=== PATIENT | male | born 1980 | race Hispanic/Latino ===

== ENCOUNTER 2018-03-03 00:10 | Emergency (ER) | payer SELFPAY ==
--- NOTE | 2018-03-03 00:39 | ED.PDOC ---
History of Present Illness - General Chief Complaint: General Stated Complaint: left hand and left calf pain Time Seen by Provider: 03/03/18 00:30 Source: patient Exam Limitations: no limitations - History of Present Illness Initial Comments: the patient is a 37-year-old male presenting to the emergency room secondary to an area of cellulitis to his inner left calf present for approximately 3 days. He is already draining some pus out of it. There is mild extending erythema. Additionally he reports that he got his hand mildly crushed about a week ago. He does have some mild soft tissue swelling of the left hand. He has full range of motion and full strength. No crepitus. No deformity. No angulation and no point tenderness. I do not believe an x-ray would be beneficial for him. This appears to be soft tissue injury only. He does appear to be neurovascularly preserved there. Timing/Duration: unsure Severity: moderate Improving Factors: nothing Worsening Factors: nothing Associated Symptoms: denies symptoms Allergies/Adverse Reactions: Allergies NO KNOWN ALLERGY Allergy (Verified 01/16/16 07:35) Home Medications: Ambulatory Orders Cephalexin 500 mg PO QID #30 cap 01/16/16 Sulfa/Trimeth 800/160 (Ds) Tab [Bactrim DS] 1 ea PO BID 01/16/16 Tramadol HCl 50 mg PO Q4HWA PRN #20 tab 01/16/16 Sulfa/Trimeth 800/160 (Ds) Tab [Bactrim DS Tab] 1 ea PO BID #14 tab 03/03/18 Review of Systems - Review of Systems Constitutional: States: no symptoms reported EENTM: States: no symptoms reported Respiratory: States: no symptoms reported Cardiology: States: no symptoms reported Gastrointestinal/Abdominal: States: no symptoms reported Genitourinary: States: no symptoms reported Musculoskeletal: States: see HPI Skin: States: see HPI Neurological: States: no symptoms reported Endocrine: States: no symptoms reported All other Systems: No Change from Baseline Past Medical History (General) - Patient Medical History Hx Seizures: No Hx Stroke: No Hx of COPD: No Hx Cardiac Disorders: No Hx Congestive Heart Failure: No Hx Hypertension: No Hx Thyroid Disease: No Hx Diabetes: No Hx Gastroesophageal Reflux: No Hx Renal Disease: No Hx Cancer: No Hx of HIV: No Hx Hepatitis C: No Hx MRSA: Yes - Leg Wound 2016 MRSA Source:: Wound - Vaccination History Hx Tetanus, Diphtheria Vaccination: Yes Hx Influenza Vaccination: No Hx Pneumococcal Vaccination: No - Social History Hx Tobacco Use: Yes - pack every 3 days Hx Substance Use: No Family Medical History - Family History Father Family History: No Known Living Status: Still Living Physical Exam - Physical Exam General Appearance: Alert, Comfortable, No apparent distress Eye Exam: bilateral normal Ears, Nose, Throat: hearing grossly normal Neck: full range of motion Respiratory: no respiratory distress, no accessory muscle use Cardiovascular/Chest: normal peripheral pulses, no edema Peripheral Pulses: dorsalis pedis,right: 2+, dorsalis pedis,left: 2+ Rectal Exam: deferred Back Exam: no vertebral tenderness Extremity: normal range of motion, no pedal edema, normal capillary refill 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 He was dosed here with the first dose and will be placed on Bactrim twice daily for the next 7 days. He needs to take this with food. Additionally the patient has some mild soft tissue crush injury to the left hand. This will simply take a while to heal. [id number] anti-inflammatory such as Advil or Aleve may help. ER warnings were given.keep routine follow-up with primary care doctor otherwise. Departure - Departure Clinical Impression: Cellulitis Qualifiers: Site of cellulitis: extremity Site of cellulitis of extremity: lower extremity Laterality: left Qualified Code(s): L03.116 - Cellulitis of left lower limb Hand crush injury Qualifiers: Encounter type: initial encounter Laterality: left Qualified Code(s): S67.22XA - Crushing injury of left hand, initial encounter Disposition: Discharge to Home or Self Care Condition: Fair Departure Forms: ED Discharge - Pt. Copy, Patient Portal Self Enrollment Instructions: Cellulitis (Skin Infection), Adult (DC) Diet: regular diet Activity: increase activity as tolerated Prescriptions: Sulfa/Trimeth 800/160 (Ds) Tab [Bactrim DS Tab] 1 ea PO BID #14 tab Home Medications: Ambulatory Orders Cephalexin 500 mg PO QID #30 cap 01/16/16 Sulfa/Trimeth 800/160 (Ds) Tab [Bactrim DS] 1 ea PO BID 01/16/16 Tramadol HCl 50 mg PO Q4HWA PRN #20 tab 01/16/16 Sulfa/Trimeth 800/160 (Ds) Tab [Bactrim DS Tab] 1 ea PO BID #14 tab 03/03/18 Additional Instructions: the patient is a 37-year-old male presenting to the emergency room secondary to mild cellulitis of the left calf. He was dosed here with the first dose and will be placed on Bactrim twice daily for the next 7 days. He needs to take this with food. Additionally the patient has some mild soft tissue crush injury to the left hand. This will simply take a while to heal. [id number] anti-inflammatory such as Advil or Aleve may help. ER warnings were given.keep routine follow-up with primary care doctor otherwise.
[2018-03-03 00:42] VITALS: TEMP 98.7; O2SAT 99
[2018-03-03] MEDS: SULFA/TRIMETH 800/160 (DS) TAB 1 EA TAB PO ONE (00:42)
[2018-03-03 01:05] VITALS: BP 149/56
== END 2018-03-03 00:50 | disposition home or self-care (01) ==
LOC: ER 00:10
DX: L03.116 Cellulitis of left lower limb (principal); S67.22XA Crushing injury of left hand, initial encounter; Z86.14 Personal history of Methicillin resistant Staphylococcus aureus infection; Z87.891 Personal history of nicotine dependence; W23.0XXA Caught, crushed, jammed, or pinched between moving objects, initial encounter; Y92.89 Other specified places as the place of occurrence of the external cause